=== PATIENT | female | born 1990 | race Two or more races ===

== ENCOUNTER 2017-09-13 05:40 | Inpatient (IN) | payer OTHER ==
[2017-09-13] MEDS ORDERED: METHYLERGONOVINE 0.2 MG INJ IM ×2 (06:30→14:00)
[2017-09-13] MEDS ORDERED: CARBOPROST 250 MCG INJ IM ×2 (06:30→14:00)
[2017-09-13] MEDS ORDERED: OXYTOCIN 30 UNITS/LR 500 ML IV ×3 (06:30→14:00)
[2017-09-13] MEDS ORDERED: MISOPROSTOL 200 MCG TAB PR ×2 (06:30→14:00)
[2017-09-13 06:42] LABS: ADD MAN DIFF? NO
[2017-09-13 06:46] LABS: WHITE BLOOD COUNT 7.7 10^3/ul (4.8-10.8)
[2017-09-13 06:46] LABS: BASOPHILS % 0.3 % (0.0-2.0); EOSINOPHILS # 0.2 10^3/ul (0.0-0.5); EOSINOPHILS % 2.1 % (0.0-7.0); HEMATOCRIT 39.6 % (37.0-47.0); LYMPHOCYTES # 2.2 10^3/ul (0.8-2.9); LYMPHOCYTES % 27.9 % (15.0-51.0); MEAN CORPUSCULAR HEMOGLOBIN 28.9 pg (29.0-33.0); MEAN CORPUSCULAR HGB CONC 32.8 g/dl (32.0-37.0); MEAN PLATELET VOLUME 10.4 fl (7.4-10.4); MONOCYTE # 0.7 10^3/ul (0.3-0.9); MONOCYTES % 8.9 % (0.0-11.0); NEUTROPHIL # 4.6 10^3/ul (1.6-7.5); NEUTROPHILS % 59.9 % (39.0-77.0); PLATELET COUNT 279 10^3/UL (140-415); RED CELL DISTRIBUTION WIDTH 14.4 % (11.5-14.5)
[2017-09-13 07:04] LABS: INR 0.84; PROTIME 11.6 Sec (11.9-14.9); PT RATIO 0.9
[2017-09-13 07:05] LABS: PARTIAL THROMBOPLASTIN TIME 28.8 Sec (25.0-35.0)
[2017-09-13] MEDS: LACTATED RINGER'S 1,000 ML IV ×3 (07:39→14:17)
[2017-09-13 07:43] LABS: HEPATITIS B SURFACE ANTIGEN NEGATIVE (NEGATIVE)
[2017-09-13] MEDS ORDERED: ONDANSETRON 4 MG INJ (09:14)
[2017-09-13] MEDS: CEFAZOLIN 2 GM/50 ML (PMX) 50 ML IV (09:14)
[2017-09-13] MEDS ORDERED: EPHEDrine SULFATE 50 MG/5 ML SYG (09:14)
[2017-09-13] MEDS ORDERED: OXYTOCIN 10 UNIT INJ ×2 (09:14→12:46)
[2017-09-13] MEDS ORDERED: morphine SULFATE/PF (10 MG/10 ML) INJ (09:14)
[2017-09-13] MEDS ORDERED: METOCLOPRAMIDE 10 MG INJ (09:14)
[2017-09-13] MEDS ORDERED: BUPIVACAINE 0.75%/DEXT (SPINAL) 2 ML INJ (09:15)
[2017-09-13 09:38] LABS: AMPHETAMINE/METHAMPHETAMINE Negative (NEGATIVE); BARBITURATES Negative (NEGATIVE); BENZODIAZEPINES Negative (NEGATIVE); CANNABINOIDS Negative (NEGATIVE); COCAINE Negative (NEGATIVE); OPIATES Negative (NEGATIVE)
[2017-09-13] MEDS: DIPHENHYDRAMINE 50 MG INJ IV (11:11)
[2017-09-13] MEDS ORDERED: ONDANSETRON 4 MG INJ IV (11:30)
[2017-09-13] MEDS ORDERED: morphine 2 MG INJ IV ×2 (11:30)
[2017-09-13] MEDS ORDERED: EPHEDrine SULFATE 50 MG/5 ML SYG IV (11:30)
[2017-09-13] MEDS ORDERED: NALOXONE (0.4 MG/ML) INJ IV (11:30)
[2017-09-13] MEDS: KETOROLAC 30 MG INJ IV (12:41)
[2017-09-13] MEDS: OXYTOCIN 30 UNITS/LR 500 ML IV ×5 (12:52→23:06)
[2017-09-13] MEDS ORDERED: OXYCODONE/ACETAMINOPHEN (5/325) TAB PO (14:00)
[2017-09-13] MEDS ORDERED: CEFAZOLIN 1 GM/50 ML (PMX) 50 ML IVPB (14:00)
[2017-09-13] MEDS: morphine SULFATE/PF (10 MG/10 ML) INJ SPINAL (14:08)
[2017-09-13 14:58] LABS: RAPID PLASMA REAGIN NONREACTIVE (NR)
[2017-09-13] MEDS: CEFAZOLIN 1 GM/50 ML (PMX) 50 ML IVPB (18:14)
[2017-09-13] MEDS: LANOLIN 7 GM TUBE TOP (22:19)
[2017-09-14] MEDS: LACTATED RINGER'S 1,000 ML IV ×2 (03:07→06:17)
[2017-09-14] MEDS: OXYTOCIN 30 UNITS/LR 500 ML IV ×2 (05:53→09:30)
[2017-09-14] MEDS: KETOROLAC 30 MG INJ IV (07:51)
[2017-09-14 08:23] LABS: ADD MAN DIFF? NO
[2017-09-14 08:27] LABS: WHITE BLOOD COUNT 9.2 10^3/ul (4.8-10.8)
[2017-09-14 08:27] LABS: BASOPHILS % 0.2 % (0.0-2.0); EOSINOPHILS # 0.1 10^3/ul (0.0-0.5); EOSINOPHILS % 1.4 % (0.0-7.0); HEMOGLOBIN 11.4 g/dl (12.0-16.0); LYMPHOCYTES # 1.8 10^3/ul (0.8-2.9); LYMPHOCYTES % 19.5 % (15.0-51.0); MEAN CORPUSCULAR HEMOGLOBIN 28.9 pg (29.0-33.0); MEAN CORPUSCULAR HGB CONC 32.6 g/dl (32.0-37.0); MEAN CORPUSCULAR VOLUME 88.8 fl (82.0-101.0); MEAN PLATELET VOLUME 10.1 fl (7.4-10.4); MONOCYTE # 0.7 10^3/ul (0.3-0.9); MONOCYTES % 7.3 % (0.0-11.0); NEUTROPHIL # 6.5 10^3/ul (1.6-7.5); NEUTROPHILS % 70.9 % (39.0-77.0); PLATELET COUNT 268 10^3/UL (140-415); RED BLOOD COUNT 3.94 10^6/ul (4.20-5.40); RED CELL DISTRIBUTION WIDTH 14.5 % (11.5-14.5)
[2017-09-14] MEDS: SENNA/DOCUSATE NA (8.6MG/50MG) TAB PO ×2 (09:30→21:24)
[2017-09-14] MEDS: IBUPROFEN 600 MG TAB PO ×3 (12:00→23:39)
[2017-09-14] MEDS: HYDROCODONE/APAP (5/325) TAB PO ×2 (16:36→23:40)
[2017-09-15] MEDS: IBUPROFEN 600 MG TAB PO ×3 (06:27→17:14)
[2017-09-15] MEDS: SENNA/DOCUSATE NA (8.6MG/50MG) TAB PO ×2 (08:01→20:56)
[2017-09-15] MEDS: OXYCODONE/ACETAMINOPHEN (5/325) TAB PO ×2 (08:01→17:17)
[2017-09-16] MEDS: IBUPROFEN 600 MG TAB PO ×4 (00:35→17:26)
[2017-09-16] MEDS: OXYCODONE/ACETAMINOPHEN (5/325) TAB PO ×3 (01:29→17:28)
[2017-09-16] MEDS: SENNA/DOCUSATE NA (8.6MG/50MG) TAB PO (08:48)
[2017-09-16] MEDS: DIPHTH/TET/ACEL PERTUSS (ADULT) 0.5 ML VIAL IM* (12:55)
== END 2017-09-16 19:45 | disposition home or self-care (01) | DRG 766 ==
LOC: L-D 05:40 → PP1 13:35
PROVIDERS: Obstetrics & Gynecology
PROC: 10D00Z1 Extraction of Products of Conception, Low, Open Approach (ICD-10-PCS; principal; 2017-09-13 08:30)
DX: O34.211 Maternal care for low transverse scar from previous cesarean delivery (principal); Z37.0 Single live birth; Z3A.39 39 weeks gestation of pregnancy
CPT/HCPCS: 80307; 85025; 85610; 85730; 86592; 86850; 86900; 86901; 87340; 90715; 99464